=== PATIENT | female | born 1975 | race Caucasian/White ===

== ENCOUNTER 2021-07-17 22:19 | Emergency (ER) | payer OTHER ==
[2021-07-17 22:27] VITALS: TEMP 98.8
[2021-07-17] MEDS ORDERED: MORPHINE SULFATE 2 MG/ML SYRINGE IVP STA (23:28)
[2021-07-17] MEDS ORDERED: SODIUM CHLORIDE 0.9% 1,000 ML IV STA (23:28)
[2021-07-17] MEDS ORDERED: ONDANSETRON 4 MG/2 ML VIAL IVP STA (23:28)
[2021-07-17 23:45] LABS: Appearance,Urine Clear (Clear); Bilirubin,Urine Negative (Negative); Blood,Urine Negative (Negative); Color,Urine Yellow; Glucose,Urine (UA) Negative (Negative); Ketones,Urine Negative (Negative); Leukocyte Esterase,Urine Negative (Negative); Nitrite,Urine Negative (Negative); PH, Urine 6.5 (5.0-8.0); Protein,Urine Negative (Negative); Specific Gravity,Urine 1.018 (1.001-1.035); Urobilinogen,Urine <2.0 mg/dL (<2.0)
[2021-07-18 00:12] LABS: Basophils # (A) 0.1 k/uL (0-0.2); Basophils % (A) 1 %; Eosinophils # (A) 0.1 k/uL (0-0.7); Eosinophils % (A) 1 %; HCT 40.7 % (34.0-46.0); HGB 13.8 gm/dL (11.4-16.0); Lymphocytes # (A) 0.9 k/uL (1.0-4.8); Lymphocytes % (A) 10 %; MCHC 33.8 g/dL (31.0-37.0); MCV 91.7 fL (80.0-100.0); Mean Platelet Volume 7.7; Monocytes # (A) 0.7 k/uL (0-1.0); Monocytes % (A) 8 %; Neutrophils # (A) 7.1 k/uL (1.3-7.7); Neutrophils % (A) 80 %; Platelet Count 221 k/uL (150-450); RBC 4.44 m/uL (3.80-5.40); RDW 12.7 % (11.5-15.5); WBC 8.9 k/uL (3.8-10.6)
[2021-07-18 00:24] LABS: ALT 21 U/L (4-34); AST 23 U/L (14-36); African American GFR (CKD) >90 (>60 ml/min/1.73 sqM); Alkaline Phosphatase 72 U/L (38-126); Amylase 48 U/L (30-110); Anion Gap 7 mmol/L; Blood Urea Nitrogen 8 mg/dL (7-17); Calcium 9.1 mg/dL (8.4-10.2); Carbon Dioxide 24 mmol/L (22-30); Chloride 104 mmol/L (98-107); Glucose 111 mg/dL (74-99); Lipase 66 U/L (23-300); Non-African American GFR(CKD) >90 (>60 ml/min/1.73 sqM); Potassium 3.8 mmol/L (3.5-5.1); Sodium 135 mmol/L (137-145); Total Bilirubin 0.2 mg/dL (0.2-1.3); Total Protein 6.7 g/dL (6.3-8.2)
--- NOTE | 2021-07-18 00:59 | ED ---
Abdominal Pain HPI - General Chief Complaint: Abdominal Pain Stated Complaint: Abd Pain Time Seen by Provider: 07/17/21 23:19 Source: patient Mode of arrival: ambulatory Limitations: no limitations - History of Present Illness Initial Comments: Patient is a 46-year-old female that presents to the emergency department complaining of generalized lower abdominal pain for the past few days. She notes that when her bladder gets full it feels like a very high pressure in her lower abdomen. She notes she gets bilateral pain that radiates up to her flanks . Patient denied any dysuria. Patient was otherwise well-appearing. She notes she is having bowel movements with no issue. Patient notes that she does have a history of bilateral ovarian cysts and this feels very similar to her previous episode. She denied chest pain shortness of breath headache nausea vomiting diarrhea constipation fever fatigue chills. - Related Data Home Medications Medication Instructions Recorded Confirmed Baclofen [Lioresal] 20 mg PO BID PRN 07/17/21 07/17/21 Allergies Allergy/AdvReac Type Severity Reaction Status Date / Time povidone-iodine Allergy Swelling Verified 07/17/21 23:40 [From Betadine] soap [From Betadine] Allergy Swelling Verified 07/17/21 23:40 Review of Systems ROS Statement: Those systems with pertinent positive or pertinent negative responses have been documented in the HPI. ROS Other: All systems not noted in ROS Statement are negative. Past Medical History Additional Past Medical History / Comment(s): dystonia History of Any Multi-Drug Resistant Organisms: None Reported Past Surgical History: Hysterectomy, Tubal Ligation, Uterine Ablation Additional Past Surgical History / Comment(s): hysteroscopy Smoking Status: Never smoker Past Alcohol Use History: None Reported Past Drug Use History: None Reported General Exam Limitations: no limitations General appearance: alert, in no apparent distress Head exam: Present: atraumatic, normocephalic, normal inspection Eye exam: Present: normal appearance, PERRL, EOMI. Absent: scleral icterus, conjunctival injection, periorbital swelling ENT exam: Present: normal exam, mucous membranes moist Neck exam: Present: normal inspection Respiratory exam: Present: normal lung sounds bilaterally. Absent: respiratory distress, wheezes, rales, rhonchi, stridor Cardiovascular Exam: Present: regular rate, normal rhythm, normal heart sounds. Absent: systolic murmur, diastolic murmur, rubs, gallop, clicks GI/Abdominal exam: Present: soft, tenderness (No point tenderness, generalized lower abdominal region.), normal bowel sounds. Absent: distended, guarding, rebound, rigid Extremities exam: Present: normal inspection, full ROM, normal capillary refill. Absent: tenderness, pedal edema, joint swelling, calf tenderness Neurological exam: Present: alert, oriented X3 Psychiatric exam: Present: normal affect, normal mood Skin exam: Present: warm, dry, intact, normal color. Absent: rash Course Vital Signs 07/17/21 07/17/21 22:21 23:54 Temperature 98.8 F Pulse Rate 105 H 83 Respiratory 19 16 Rate Blood Pressure 149/105 126/75 O2 Sat by Pulse 99 100 Oximetry Medical Decision Making - Medical Decision Making 46-year-old female complaining of lower abdominal pain. History of ovarian cyst s. Labs, 2 mg of morphine, 4 mg of Zofran, 1 L normal saline, KUB ordered. Labs unremarkable. KUB negative for any acute process per Patient most likely experiencing ovarian cyst pain recommended follow-up with [facility] and primary care. case discussed with Dr. Lynn, patient can discharge home - Lab Data Result diagrams: 07/17/21 23:36 07/17/21 23:36 Lab Results 07/17/21 07/17/21 07/17/21 Range/Units 23:07 23:36 23:36 WBC 8.9 (3.8-10.6) k/uL RBC 4.44 (3.80-5.40) m/uL Hgb 13.8 (11.4-16.0) gm/dL Hct 40.7 (34.0-46.0) % MCV 91.7 (80.0-100.0) fL MCH 31.0 (25.0-35.0) pg MCHC 33.8 (31.0-37.0) g/dL RDW 12.7 (11.5-15.5) % Plt Count 221 (150-450) k/uL MPV 7.7 Neutrophils % 80 % Lymphocytes % 10 % Monocytes % 8 % Eosinophils % 1 % Basophils % 1 % Neutrophils # 7.1 (1.3-7.7) k/uL Lymphocytes # 0.9 L (1.0-4.8) k/uL Monocytes # 0.7 (0-1.0) k/uL Eosinophils # 0.1 (0-0.7) k/uL Basophils # 0.1 (0-0.2) k/uL Sodium 135 L (137-145) mmol/L Potassium 3.8 (3.5-5.1) mmol/L Chloride 104 (98-107) mmol/L Carbon Dioxide 24 (22-30) mmol/L Anion Gap 7 mmol/L BUN 8 (7-17) mg/dL Creatinine 0.77 (0.52-1.04) mg/dL Est GFR (CKD-EPI)AfAm >90 (>60 ml/min/1.73 sqM) Est GFR (CKD-EPI)NonAf >90 (>60 ml/min/1.73 sqM) Glucose 111 H (74-99) mg/dL Calcium 9.1 (8.4-10.2) mg/dL Total Bilirubin 0.2 (0.2-1.3) mg/dL AST 23 (14-36) U/L ALT 21 (4-34) U/L Alkaline Phosphatase 72 (38-126) U/L Total Protein 6.7 (6.3-8.2) g/dL Albumin 4.0 (3.5-5.0) g/dL Amylase 48 (30-110) U/L Lipase 66 (23-300) U/L Urine Color Yellow Urine Appearance Clear (Clear) Urine pH 6.5 (5.0-8.0) Ur Specific [place] 1.018 (1.001-1.035) Urine Protein Negative (Negative) Urine Glucose (UA) Negative (Negative) Urine Ketones Negative (Negative) Urine Blood Negative (Negative) Urine Nitrite Negative (Negative) Urine Bilirubin Negative (Negative) Urine Urobilinogen <2.0 (<2.0) mg/dL Ur Leukocyte Esterase Negative (Negative) - Radiology Data Radiology results: report reviewed, image reviewed KUB: Nonacute abdomen. Disposition Clinical Impression: Abdominal pain Disposition: HOME SELF-CARE Condition: Stable Instructions (If sedation given, give patient instructions): Abdominal Pain (ED) Additional Instructions: Please return to the Emergency Department if symptoms worsen or any other concerns. Follow-up primary care in 1-2 days. Follow-up with [facility] when feasible. Is patient prescribed a controlled substance at d/c from ED?: No Referrals: Nonstaff,Physician [Primary Care Provider] - 1-2 days Time of Disposition: 01:50
--- NOTE | 2021-07-18 01:39 | XR ---
EXAMINATION TYPE: XR KUB DATE OF EXAM: 07/18/2021 COMPARISON: NONE HISTORY: Abdominal pain TECHNIQUE: 2 views FINDINGS: There is no sign of intestinal obstruction or pneumoperitoneum. Fecal pattern is normal. Th ere is no evidence of a mass. There are no pathologic calcifications. IMPRESSION: Nonacute abdomen.
[2021-07-18 01:59] VITALS: BP 129/81; PULSE 79; RESP 15
== END 2021-07-18 01:59 | disposition home or self-care (01) ==
LOC: EC 22:19
DX: R10.31 Right lower quadrant pain (principal); R10.32 Left lower quadrant pain
CPT/HCPCS: 36415; 80053; 82150; 83690; 85025; 81003; 74018; 99284; 96374; 96375; 96361 ×2; J2405; J2270

== ENCOUNTER 2022-02-07 10:36 | Emergency (ER) | payer OTHER ==
[2022-02-07 11:35] VITALS: RESP 18
[2022-02-07] MEDS ORDERED: MORPHINE SULFATE 4 MG/ML SYRINGE IM STA (11:36)
[2022-02-07] MEDS ORDERED: DIPH,PERTUS(ACELL)TETVAC-LF 0.5 ML VIAL IM ONE (11:56)
[2022-02-07] MEDS ORDERED: AMOXIC-POT CLAV 875-125MG 1 EACH TAB PO STA (12:07)
[2022-02-07] MEDS ORDERED: LIDOCAINE 1% INJ 10MG/ML (5 ML VIAL-PF) SQ ONE (12:15)
--- NOTE | 2022-02-07 13:00 | CT ---
EXAMINATION TYPE: CT brain wo con DATE OF EXAM: 02/07/2022 COMPARISON: None available HISTORY: Dog bite to head CT DLP: 1135.4 mGycm Automated exposure control for dose reduction was used. TECHNIQUE: CT scan of the brain is performed without IV contrast administration. FINDINGS: No acute intracranial hemorrhage. No gross acute cortical infarct. No midline shift, herniation or ve ntriculomegaly. Unremarkable basal cisterns, sella and CP angles. No gross space-occupying lesion, vasogenic edema or mass effect. Unremarkable orbits. Left periauricular soft tissue injury/air bubbles. Mucosal thickening of the rig ht sphenoid sinus compartment. Clear mastoid air cells. Unremarkable calvarial bones. IMPRESSION: No acute intracranial posttraumatic sequela or acute calvarial bone fracture. Left periauricular soft tissue injury/air bubbles.
[2022-02-07] MEDS ORDERED: HYDROmorphone 1 MG/ML 1 ML SYRINGE IM STA (13:42)
--- NOTE | 2022-02-07 14:12 | ED ---
Animal Bite HPI - General Chief Complaint: Animal Bite Stated Complaint: Dog Attack/@0945 Time Seen by Provider: 02/07/22 11:41 Source: patient Mode of arrival: ambulatory Limitations: no limitations - History of Present Illness Initial Comments: Patient is a 46-year-old female who presents to the emergency department for evaluation of animal bite. Patient states for the last month her dog has became very aggressive. Patient's dog has attacked multiple individuals. Patient states she was directing the dog to the crate today when it attacked her. Patient sustained injury to the scalp, left cheek, left ear, and left arm. She is in significant pain. Patient states the dog is up-to-date on rabies vaccine. Last tetanus unknown. - Related Data Home Medications Medication Instructions Recorded Confirmed Ashwagandha Root Extract 500 mg PO DAILY 02/07/22 02/07/22 [Ashwagandha] Baclofen [Lioresal] 10 mg PO BID PRN 02/07/22 02/07/22 Elderberry Fruit and Flower [Black 1 cap PO DAILY 02/07/22 02/07/22 Elderberry 575 mg Cap] Ibuprofen [Motrin] 800 mg PO DAILY 02/07/22 02/07/22 Valerian Root [Valerian] 450 mg PO HS 02/07/22 02/07/22 Previous Rx's Medication Instructions Recorded Amoxic-Pot Clav 875-125Mg 1 tab PO BID 7 Days #14 tab 02/07/22 [Augmentin 875-125] HYDROcodone/APAP 10-325MG [Vanlue 1 tab PO Q4HR PRN 3 Days #18 tab 02/07/22 10-325] Allergies Allergy/AdvReac Type Severity Reaction Status Date / Time cinnamon Allergy Unknown Verified 02/07/22 13:35 povidone-iodine Allergy Swelling Verified 02/07/22 13:35 [From Betadine] soap [From Betadine] Allergy Swelling Verified 02/07/22 13:35 Review of Systems ROS Statement: Those systems with pertinent positive or pertinent negative responses have been documented in the HPI. ROS Other: All systems not noted in ROS Statement are negative. Past Medical History Past Medical History: CVA/TIA, Seizure Disorder Additional Past Medical History / Comment(s): dystonia, lupus History of Any Multi-Drug Resistant Organisms: None Reported Past Surgical History: Hysterectomy, Tonsillectomy, Tubal Ligation, Uterine Ablation Additional Past Surgical History / Comment(s): hysteroscopy Past Psychological History: No Psychological Hx Reported Smoking Status: Current every day smoker Past Alcohol Use History: None Reported Past Drug Use History: Marijuana General Exam Limitations: no limitations General appearance: alert, in no apparent distress Head exam: Present: normocephalic, other (4 puncture wounds over the left scalp). Absent: atraumatic Eye exam: Present: normal appearance, PERRL, EOMI. Absent: scleral icterus, conjunctival injection, periorbital swelling ENT exam: Absent: normal external ear exam (Left tragus is split in half with continuous laceration to left cheek) Neck exam: Present: normal inspection, full ROM. Absent: tenderness Respiratory exam: Present: normal lung sounds bilaterally. Absent: respiratory distress, wheezes, rales, rhonchi, stridor Cardiovascular Exam: Present: normal rhythm, tachycardia (patient has significant pain ), normal heart sounds. Absent: systolic murmur, diastolic m urmur, rubs, gallop, clicks Extremities exam: Absent: normal inspection (2 puncture wounds over left lower arm) Neurological exam: Present: alert, oriented X3, CN II-XII intact Psychiatric exam: Present: normal affect, anxious Skin exam: Present: warm, dry, intact, normal color. Absent: rash Course Vital Signs 02/07/22 02/07/22 02/07/22 10:41 11:25 14:34 Temperature 98.4 F 97.9 F Pulse Rate 110 H 91 71 Respiratory 24 18 18 Rate Blood Pressure 137/87 126/79 131/77 O2 Sat by Pulse 97 99 97 Oximetry Procedures - Laceration Laceration #1 Consent Obtained: verbal consent Indication: laceration Site: other (left tragus of ear ) Description: flap Depth: simple, single layer Sedation/Analgesia: none Anesthetic Used: lidocaine 1% Anesthesia Technique: local infiltration Pre-repair: wound explored, irrigated extensively, deep structures intact Type of Sutures: nylon Size of Sutures: 6-0 Number of Sutures: 1 Technique: simple, interrupted Patient Tolerated Procedure: well, no complications Medical Decision Making - Medical Decision Making This is a 46-year-old female who presents for evaluation of multiple puncture wounds from attacked by her dog today. Thorough history and examination were performed. Patient is anxious due to pain and because she will have to put her dog down today. There are 4 deep puncture wounds over the left occipital scalp. The left tragus is split in half with continuous laceration to left cheek. There are 2 puncture wounds over the left lower arm. Due to severity of scalp puncture wounds CT of the brain was obtained which is negative for acute process The wounds were explored and irrigated extensively. Because of the deformity of the tragus I do feel that it will significantly benefit from one suture. I did talk this over with my supervising physician Dr. Gonsales who is agreeable with plan. The tragus was reconstructed with 6-0 suture. The tragus came back together nicely. Patient tolerated the procedure well with no complications. Rabies vaccine is not indicated. Tetanus was updated. Patient will be discharged with Vanlue for severe pain as well as Augmentin. She was given first dose of Augmentin in the emergency department. Wound care instruction was provided in detail. Patient to return for suture removal in 7 days. Return parameters discussed. Patient verbalizes understanding and is agreeable to this plan. Dr. Gonsales is my attending. Disposition Clinical Impression: Dog bite Disposition: HOME SELF-CARE Condition: Good Instructions (If sedation given, give patient instructions): Animal Bite (ED) Additional Instructions: Please take medication as directed. Alternate Vanlue and ibuprofen for pain. The next dose of Vanlue will be at 6 PM today. If one works better than the other you may take that as directed only instead. You will need to take the second dose of antibiotic tonight before bed. Keep wounds clean and dry. Wash with mild soap. It is important to keep them uncovered. Do not use bacitracin or other ointments. Follow-up with primary care provider in one to 2 days. Return for suture removal in 7 days. Return to the emergency department if you experience new, concerning, or worsening symptoms. Prescriptions: Amoxic-Pot Clav 875-125Mg [Augmentin 875-125] 1 tab PO BID 7 Days #14 tab HYDROcodone/APAP 10-325MG [Vanlue 10-325] 1 tab PO Q4HR PRN 3 Days #18 tab PRN Reason: Pain Is patient prescribed a controlled substance at d/c from ED?: Yes Referrals: None,Stated [Primary Care Provider] - 1-2 days Time of Disposition: 14:12
[2022-02-07 14:36] VITALS: BP 131/77; PULSE 71; TEMP 97.9
== END 2022-02-07 14:36 | disposition home or self-care (01) ==
LOC: EC 10:36
DX: S01.412A Laceration without foreign body of left cheek and temporomandibular area, initial encounter (principal); S01.03XA Puncture wound without foreign body of scalp, initial encounter; S51.832A Puncture wound without foreign body of left forearm, initial encounter; G40.909 Epilepsy, unspecified, not intractable, without status epilepticus; F17.200 Nicotine dependence, unspecified, uncomplicated; F12.90 Cannabis use, unspecified, uncomplicated; Z86.73 Personal history of transient ischemic attack (TIA), and cerebral infarction without residual deficits; Z79.899 Other long term (current) drug therapy; Z23 Encounter for immunization; W54.0XXA Bitten by dog, initial encounter
CPT/HCPCS: 70450; 90715; 12011; 99283; 96372 ×2; 90471; J2270; J2001; J1170